=== PATIENT | male | born 1995 | race African-American/Black ===

== ENCOUNTER 2021-05-01 16:06 | Emergency (ER) | payer SELFPAY ==
[2021-05-01] MEDS ORDERED: Naloxone HCl 2 mg/2 ml Syringe ONE (16:12)
== END 2021-05-01 18:27 | disposition left against medical advice (07) ==
LOC: ERS 16:06
DX: Z53.21 Procedure and treatment not carried out due to patient leaving prior to being seen by health care provider (principal)
CPT/HCPCS: J2310